=== PATIENT | female | born 1965 ===

== ENCOUNTER 2024-03-07 13:11 | Emergency (ER) | payer MEDICARE ==
[~2024-03-07] VITALS: Ht 182.9 cm; Wt 65.8 kg
[2024-03-07] MEDS ORDERED: Dexamethasone Sod Phos 10 MG/ML 1ML VIAL PO ONE (13:30)
[2024-03-07 14:40] LABS: BASOPHILS ABSOLUTE AUTO 0.02 K/mm3 (0.00-0.23); BASOPHILS PERCENT AUTO 0 % (0-2); EOSINOPHILS ABSOLUTE AUTO 0.11 K/mm3 (0.00-0.68); EOSINOPHILS PERCENT AUTO 1 % (0-6); Hemoglobin 15.6 g/dL (11.5-16.0); IMMATURE GRAN ABSOLUTE AUTO 0.02 K/mm3 (0.00-0.10); IMMATURE GRAN PERCENT AUTO 0 % (0-1); LYMPHOCYTES PERCENT AUTO 11 % (21-46); MONOCYTES ABSOLUTE AUTO 0.41 K/mm3 (0.16-1.47); MONOCYTES PERCENT AUTO 4 % (4-13); Mean Corpuscular HGB 32.4 pg (26.0-34.0); Mean Corpuscular HGB Conc 34.7 g/dL (31.5-36.5); Mean Corpuscular Volume 94 fL (80-100); Mean Platelet Volume 10.3 fL (9.1-12.4); NEUTROPHILS ABSOLUTE AUTO 8.12 K/mm3 (1.96-9.15); NEUTROPHILS PERCENT AUTO 83 % (41-73); Platelet Count 347 K/mm3 (150-400); RDW Coefficient Variation 12.3 % (11.7-14.2); RDW Standard Deviation 43.1 fL (35.1-46.3); Red Blood Cell Count 4.81 M/mm3 (3.80-5.20); White Blood Cell Count 9.78 K/mm3 (4.00-11.30)
[2024-03-07 14:58] LABS: Albumin/Globulin Ratio 1.1 (0.8-1.8); Bilirubin, Total 0.7 mg/dL (0.1-1.0); Bun/Creatinine Ratio 24.4 (12.0-20.0); Calcium, Blood 9.2 mg/dL (8.5-10.1); Creatinine, Blood 0.66 mg/dL (0.40-1.00); Globulin, Blood 3.5 g/dL (2.2-4.0); Potassium, Blood 4.1 mmol/L (3.5-5.5); Total Protein, Blood 7.5 g/dL (6.4-8.2)
[2024-03-07] MEDS ORDERED: Famotidine 20 MG Tab PO ONE (18:10)
[2024-03-07] MEDS ORDERED: DiphenhydrAMINE HCl 50 MG Cap PO ONE (18:10)
[2024-03-07] MEDS ORDERED: MethylPREDNISolone Sod Succ 125 MG Vial IV ONE (18:10)
[2024-03-07] MEDS ORDERED: EPINEPhrine HCl 1 MG/ML 1ML Amp IM ONE (18:10)
[2024-03-07] MEDS ORDERED: EpiNEPhrine 1 MG/1 ML 1ML Vial IM ONE (18:20)
[2024-03-07] MEDS ORDERED: PRED20 PO (22:03)
== END 2024-03-07 22:14 | disposition home or self-care (01) ==
LOC: ER 13:11
PROVIDERS: Emergency Medicine
DX: L50.0 Allergic urticaria (principal); Z88.5 Allergy status to narcotic agent; Z88.8 Allergy status to other drugs, medicaments and biological substances
CPT/HCPCS: 70491; 80053; 85025; 93970; 96372-59; 96374-59; 99284-25; A9270; J0171; J2919; Q9967